=== PATIENT | male | born 1960 | race Caucasian/White ===

== ENCOUNTER 2016-11-28 07:29 | Emergency (ER) | payer MEDICAID, OTHER ==
[~2016-11-28] VITALS: Ht 180.3 cm; Wt 106.0 kg
[~2016-11-28 07:29] MED LIST: CARV12.5 PO; HYDR-3533 PO; LEVA500T33 PO
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
[2016-11-28] MEDS ORDERED: ALPR.25 PO (07:41)
[2016-11-28] MEDS ORDERED: ROBA500T PO ×2 (07:50→08:15)
[2016-11-28] MEDS ORDERED: IBUP800T23 PO ×2 (07:50→08:15)
[2016-11-28] MEDS ORDERED: ORPHENADRINE INJ 60 MG/2 ML AMP IM ONE (08:00)
[2016-11-28] MEDS ORDERED: KETOROLAC TROMETHAMINE 60 MG/2 ML (IM) VIAL IM ONE (08:00)
[2016-11-28 08:04] VITALS: BP 116/86; PULSE 80; RESP 14; TEMP 98.6; O2SAT 99
[2016-11-28 08:08] VITALS: BP 152/90; PULSE 64; RESP 20; TEMP 96.4; O2SAT 97
== END 2016-11-28 08:32 | disposition home or self-care (01) ==
LOC: NEPK 07:29
DX: S16.1XXA Strain of muscle, fascia and tendon at neck level, initial encounter (principal); I10 Essential (primary) hypertension; Z72.0 Tobacco use; Z86.79 Personal history of other diseases of the circulatory system; Z87.39 Personal history of other diseases of the musculoskeletal system and connective tissue; Z87.438 Personal history of other diseases of male genital organs; X50.0XXA Overexertion from strenuous movement or load, initial encounter; Y99.0 Civilian activity done for income or pay
CPT/HCPCS: 96372; 99283; J1885; J2360

== ENCOUNTER 2017-09-13 16:06 | Emergency (ER) | payer OTHER ==
[~2017-09-13 16:06] MED LIST changes: +ALPR.25 PO; +IBUP1TAB7 PO; -LEVA500T33 PO; +ROBA500T PO
[2017-09-13 16:07] VITALS: BP 122/65; PULSE 77; RESP 16; TEMP 98.2; O2SAT 96
[2017-09-13] MEDS ORDERED: MORPHINE SULFATE 2 MG/ML INJ IV PUSH ONE (16:45)
[2017-09-13] MEDS ORDERED: ONDANSETRON HCL 4 MG/2 ML VIAL IV PUSH ONE (16:45)
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
[2017-09-13 17:55] LABS: PROTHROMBIN TIME - PATIENT 10.2 SEC (9.8-11.6)
[2017-09-13] MEDS ORDERED: HYDROmorphone HCL PF 1 MG/ML VIAL IV PUSH ONE (18:00)
[2017-09-13 18:05] LABS: BICARBONATE 23.6 MEQ/L (21.0-32.0); CREATININE 1.04 MG/DL (0.60-1.30); MAGNESIUM 2.1 MG/DL (1.5-2.5)
[2017-09-13] MEDS ORDERED: HYDROmorphone HCL PF 2 MG/ML VIAL IV PUSH ONE (18:15)
[2017-09-13 18:24] LABS: AUTOMATED NEUTROPHIL # 6.7 TH/MM3 (1.8-7.7); BASOPHIL # 0.1 TH/MM3 (0-0.2); EOSINOPHIL # 0.2 TH/MM3 (0-0.4); EOSINOPHIL % 1.9 % (0.0-4.0); HEMATOCRIT 45.2 % (39.0-51.0); HEMOGLOBIN 15.9 GM/DL (13.0-17.0); LYMPH % 20.8 % (9.0-44.0); LYMPHOCYTE # 2.1 TH/MM3 (1.0-4.8); MEAN CELL VOLUME 89.1 FL (80.0-100.0); MEAN CORPUSCULAR HEMOGLOBIN 31.3 PG (27.0-34.0); MEAN CORPUSCULAR HGB CONC 35.1 % (32.0-36.0); MEAN PLATELET VOLUME 10.4 FL (7.0-11.0); MONO % 8.5 % (0.0-8.0); MONOCYTE # 0.8 TH/MM3 (0-0.9); NEUT % 67.8 % (16.0-70.0); PLATELET COUNT 144 TH/MM3 (150-450); RED BLOOD COUNT 5.07 MIL/MM3 (4.50-5.90); RED CELL DISTRIBUTION WIDTH 13.1 % (11.6-17.2); WHITE BLOOD COUNT 9.9 TH/MM3 (4.0-11.0)
[2017-09-13] MEDS ORDERED: CARV3.12 PO (18:44)
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
[2017-09-13] MEDS ORDERED: IOHEXOL 350 MG/ML 10 ML VIAL (for RAD DIAG) IVCONTRAST ONE (19:14)
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
[2017-09-13] MEDS ORDERED: IBUP1TAB7 PO (19:47)
[2017-09-13] MEDS ORDERED: PERC5TAB12 PO (19:47)
== END 2017-09-13 20:54 | disposition home or self-care (01) ==
LOC: NEPE 16:06
DX: S22.42XA Multiple fractures of ribs, left side, initial encounter for closed fracture (principal); S70.02XA Contusion of left hip, initial encounter; S00.93XA Contusion of unspecified part of head, initial encounter; V85.5XXA Driver of special construction vehicle injured in nontraffic accident, initial encounter; I10 Essential (primary) hypertension; Z72.0 Tobacco use
CPT/HCPCS: 70450; 71045; 71260; 72125; 73502; 74177; 80048; 83735; 85025; 85610; 85730; 96374; 96375; 99285; J1170; J2270; J2405; Q9967

== ENCOUNTER 2017-09-16 21:22 | Emergency (ER) | payer OTHER ==
[~2017-09-16] VITALS: Ht 180.3 cm; Wt 106.5 kg
[~2017-09-16 21:22] MED LIST changes: -ALPR.25 PO; -CARV12.5 PO; +CARV3.12 PO; -HYDR-3533 PO; +PERC5TAB12 PO; -ROBA500T PO
[2017-09-16 21:23] VITALS: BP 165/77; PULSE 80; RESP 16; TEMP 98.5; O2SAT 98
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
[2017-09-16] MEDS ORDERED: PERC5TAB12 PO (21:58)
[2017-09-16] MEDS ORDERED: oxyCODONE/ACETAMINOPHEN 5 MG/325 MG TAB PO ONE (22:00)
[2017-09-16] MEDS ORDERED: LIDO1ADH4 TOPICAL (22:06)
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
[2017-09-16] MEDS ORDERED: KETOROLAC TROMETHAMINE 60 MG/2 ML (IM) VIAL IM ONE (22:15)
[2017-09-16] MEDS ORDERED: LIDOCAINE HCL 5% PATCH T-DERMAL ONE (22:15)
--- NOTE | 2017-09-18 00:21 | EKG ---
Date Performed: 09/16/2017 Time Performed: 21:45:48 PTAGE: 57 years EKG: Sinus rhythm NORMAL ECG NO PREVIOUS TRACING DOCTOR: Nicolette Weaver Interpretating Date/Time 09/18/2017 00:19:55
== END 2017-09-16 23:15 | disposition home or self-care (01) ==
LOC: NEPD 21:22
DX: S22.42XD Multiple fractures of ribs, left side, subsequent encounter for fracture with routine healing (principal); Z76.0 Encounter for issue of repeat prescription; I10 Essential (primary) hypertension; J84.10 Pulmonary fibrosis, unspecified; V85 Occupant of special construction vehicle injured in transport accident; Y99.0 Civilian activity done for income or pay; Z72.0 Tobacco use
CPT/HCPCS: 71045; 93005; 94150; 96372; 99284; J1885